=== PATIENT | female | born 1965 | race Caucasian/White ===

== ENCOUNTER 2017-04-30 12:10 | Inpatient (IN) ==
[2017-04-30 13:14] LABS: Basophils % 0.2 %; Eosinophils # 0.2 K/mcL (0.0-0.6); Eosinophils % 2.7 %; Hematocrit 32.9 % (35.3-44.9); Hemoglobin 11.9 g/dL (11.5-15.4); Immature Granulocytes % 0.2 % (0-4); Lymphocytes # 1.8 K/mcL (0.6-4.6); Lymphocytes % 32.1 %; Mean Corpuscular HGB Conc 36.2 g/dL (31.6-35.5); Mean Corpuscular Hemoglobin 31.4 pg (28.0-33.3); Mean Corpuscular Volume 86.8 fL (83.0-100.0); Mean Platelet Volume 9.9 fL (9.4-12.4); Monocytes # 0.6 K/mcL (0.0-1.3); Monocytes % 10.6 %; Platelet Count 197 K/mcL (140-400); Red Blood Count 3.79 M/mcL (3.82-4.97); Red Cell Distribution Width 12.8 % (11.5-14.5); Segmented Neutrophils % 54.2 %
[2017-04-30 13:29] LABS: Alanine Aminotransferase 24 Units/L (0-55); Albumin 3.2 g/dL (3.5-5.0); Albumin/Globulin Ratio 0.9 (1.1-2.2); Alkaline Phosphatase 176 Units/L (38-126); Aspartate Amino Transferase 21 Units/L (5-34); BUN/Creatinine Ratio 10 (6-26); Bilirubin,Total 0.2 mg/dL (0.2-1.2); Blood Urea Nitrogen 7 mg/dL (7-20); Carbon Dioxide 24 mEq/L (19-29); Chloride 90 mEq/L (98-109); Globulin 3.6 g/dL (2.4-3.5); Glucose 60 mg/dL (70-99); Osmolality,Calculated 246 (280-300); Potassium 4.6 mEq/L (3.5-4.5); Total Protein 6.8 g/dL (6.0-8.3); eGFR For African Americans > 60 (> 60); eGFR For Non-African Americans > 60 (> 60)
[2017-04-30 13:33] LABS: Sodium 120 mEq/L (136-145)
--- NOTE | 2017-04-30 13:40 | Emergency Department Note ---
Disposition Clinical Impression: Hyponatremia Disposition: Admitted As Inpatient Condition: Good Referrals: Amos Styles DO [Primary Care Provider] - Forms: ED Satisfaction Letter General Adult HPI - General Chief complaint: ED Recheck/Abnormal Lab/Rx Stated complaint: CRITICAL SODIUM Time Seen by Provider: 04/30/17 12:58 Source: patient Limitations: no limitations Nursing Notes Reviewed: Yes Vital Signs Reviewed: Yes - History of Present Illness Pain Scale: 8 - Related Data Home Medications Medication Instructions Recorded Confirmed Benztropine [Cogentin] 0.5 mg PO BID 04/13/17 04/30/17 Fluticasone Propionate Nasal 2 spray NS DAILY 04/13/17 04/30/17 [Flonase] Meloxicam [Meloxicam] 15 mg PO DAILY 04/13/17 04/30/17 OLANZapine [Zyprexa] 20 mg PO HS 04/13/17 04/30/17 OXcarbazepine [Oxcarbazepine] 600 mg PO TID 04/13/17 04/30/17 Pantoprazole Sodium 40 mg PO DAILY 04/13/17 04/30/17 Pregabalin [Lyrica] 50 mg PO TID 04/13/17 04/30/17 diazePAM [Valium] 10 mg PO TID 04/13/17 04/30/17 hydrOXYzine pamoate [HydrOXYzine 50 mg PO BID 04/13/17 04/30/17 Pamoate] Allergies Allergy/AdvReac Type Severity Reaction Status Date / Time codeine Allergy Anaphylaxis Verified 04/30/17 14:37 Penicillins Allergy Hives Verified 04/30/17 14:37 Past Medical History - Past Medical History Medical history: Reports: cancer, renal disease, other Surgical history: Reports: appendectomy, cholecystectomy Psychiatric history: Reports: anxiety, panic disorder 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: polycystic ovary syndrome, 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 - Social History Smoking Status: Current every day smoker Smokeless Tobacco Status: No Alcohol use: Reports: none Drug use: Reports: none Physical Exam - General Limitations: no limitations General appearance: alert, in no apparent distress Course Vital Signs Temperature 97.6 F 04/30/17 12:15 Pulse Rate 72 04/30/17 12:15 Respiratory Rate 18 04/30/17 12:15 Blood Pressure 134/89 04/30/17 12:15 O2 Sat by Pulse Oximetry 96 04/30/17 12:15 Temperature 97.6 F 04/30/17 12:15 Pulse Rate 70 04/30/17 14:30 Respiratory Rate 20 04/30/17 14:30 Blood Pressure 156/100 04/30/17 14:30 O2 Sat by Pulse Oximetry 99 04/30/17 14:30 Oxygen Delivery Oxygen Delivery Room Air Medical Decision Making - MDM Narrative Medical decision making narrative: I examined this patient and my medical decision-making was reviewed with the Resident Physician. I agree with the documented findings, disposition and treatment plan as described except to the extent set forth below. Patient seen and evaluated by Dr. Alfredo and myself, agrees his evaluation and management plan, supervised care the patient's stay. Patient presents today after an lab work done as an outpatient which shows low sodium. She has had a history of what sounds like CHF in the past. She is a rather poor historian. She has had an episode of chest pain also were noted to workup seeping finding etiology of this with her past medical records and reassess. She will need admission. She has had no history of seizures. 1445 hrs.: Patient's labs are back. She has not had a seizure activity. I do not she needs hypertonic saline at this time. Hydrate her with further saline spoke with nephrology that will consult on her and admit to hospitalist. Impressions hyponatremia uncertain etiology. Peripheral edema. - Lab Data Result diagrams: 04/30/17 13:07 04/30/17 13:07 Lab Results 04/30/17 04/30/17 04/30/17 Range/Units 13:07 13:07 14:14 WBC 5.6 (4.3-11.1) K/mcL RBC 3.79 L (3.82-4.97) M/mcL Hgb 11.9 (11.5-15.4) g/dL Hct 32.9 L (35.3-44.9) % MCV 86.8 (83.0-100.0) fL MCH 31.4 (28.0-33.3) pg MCHC 36.2 H (31.6-35.5) g/dL RDW 12.8 (11.5-14.5) % Plt Count 197 (140-400) K/mcL MPV 9.9 (9.4-12.4) fL Immature Gran % 0.2 (0-4) % Seg Neutrophils % 54.2 % Lymphocytes % 32.1 % Monocytes % 10.6 % Eosinophils % 2.7 % Basophils % 0.2 % Neutrophils # 3.0 (1.6-8.9) K/mcL Lymphocytes # 1.8 (0.6-4.6) K/mcL Monocytes # 0.6 (0.0-1.3) K/mcL Eosinophils # 0.2 (0.0-0.6) K/mcL Basophils # 0.0 (0.0-0.2) K/mcL Sodium 120 L* (136-145) mEq/L Potassium 4.6 H (3.5-4.5) mEq/L Chloride 90 L (98-109) mEq/L Carbon Dioxide 24 (19-29) mEq/L BUN 7 (7-20) mg/dL Creatinine 0.67 (0.57-1.11) mg/dL Est GFR ( Amer) > 60 (> 60) Est GFR (Non-Af Amer) > 60 (> 60) BUN/Creatinine Ratio 10 (6-26) Glucose 60 L (70-99) mg/dL Calculated Osmolality 246 L (280-300) Calcium 9.0 (8.6-10.8) mg/dL Total Bilirubin 0.2 (0.2-1.2) mg/dL AST 21 (5-34) Units/L ALT 24 (0-55) Units/L Alkaline Phosphatase 176 H (38-126) Units/L Serum Total Protein 6.8 (6.0-8.3) g/dL Albumin 3.2 L (3.5-5.0) g/dL Globulin 3.6 H (2.4-3.5) g/dL Albumin/Globulin Ratio 0.9 L (1.1-2.2) Urine Color (Yellow) Urine Clarity (Clear) Urine pH (5.0-8.0) pH Units Ur Specific [place] (1.010-1.025) Urine Protein (Neg-Trace) mg/dL Urine Glucose (UA) (Normal) mg/dL Urine Ketones (Negative) mg/dL Urine Blood (Negative) Urine Nitrite (Negative) Urine Bilirubin (Negative) Urine Urobilinogen (Normal) mg/dL Ur Leukocyte Esterase (Negative) Ur Culture Indicated? (NO) Urine Creatinine 47 mg/dL Urine Sodium 63.0 mEq/L 04/30/17 Range/Units 14:15 WBC (4.3-11.1) K/mcL RBC (3.82-4.97) M/mcL Hgb (11.5-15.4) g/dL Hct (35.3-44.9) % MCV (83.0-100.0) fL MCH (28.0-33.3) pg MCHC (31.6-35.5) g/dL RDW (11.5-14.5) % Plt Count (140-400) K/mcL MPV (9.4-12.4) fL Immature Gran % (0-4) % Seg Neutrophils % % Lymphocytes % % Monocytes % % Eosinophils % % Basophils % % Neutrophils # (1.6-8.9) K/mcL Lymphocytes # (0.6-4.6) K/mcL Monocytes # (0.0-1.3) K/mcL Eosinophils # (0.0-0.6) K/mcL Basophils # (0.0-0.2) K/mcL Sodium (136-145) mEq/L Potassium (3.5-4.5) mEq/L Chloride (98-109) mEq/L Carbon Dioxide (19-29) mEq/L BUN (7-20) mg/dL Creatinine (0.57-1.11) mg/dL Est GFR ( Amer) (> 60) Est GFR (Non-Af Amer) (> 60) BUN/Creatinine Ratio (6-26) Glucose (70-99) mg/dL Calculated Osmolality (280-300) Calcium (8.6-10.8) mg/dL Total Bilirubin (0.2-1.2) mg/dL AST (5-34) Units/L ALT (0-55) Units/L Alkaline Phosphatase (38-126) Units/L Serum Total Protein (6.0-8.3) g/dL Albumin (3.5-5.0) g/dL Globulin (2.4-3.5) g/dL Albumin/Globulin Ratio (1.1-2.2) Urine Color Yellow (Yellow) Urine Clarity Clear (Clear) Urine pH 7.0 (5.0-8.0) pH Units Ur Specific [place] 1.015 (1.010-1.025) Urine Protein Negative (Neg-Trace) mg/dL Urine Glucose (UA) Normal (Normal) mg/dL Urine Ketones Negative (Negative) mg/dL Urine Blood Negative (Negative) Urine Nitrite Negative (Negative) Urine Bilirubin Negative (Negative) Urine Urobilinogen Normal (Normal) mg/dL Ur Leukocyte Esterase Negative (Negative) Ur Culture Indicated? NO (NO) Urine Creatinine mg/dL Urine Sodium mEq/L
--- NOTE | 2017-04-30 14:10 | Emergency Department Note ---
Disposition Clinical Impression: Hyponatremia Disposition: Admitted As Inpatient Condition: Good Referrals: Amos Styles DO [Primary Care Provider] - Forms: ED Satisfaction Letter Recheck wound or abnormal lab - General Chief Complaint: ED Recheck/Abnormal Lab/Rx Stated Complaint: CRITICAL SODIUM Time Seen by Provider: 04/30/17 12:58 Source: patient Mode of arrival: private vehicle Limitations: no limitations Nursing Notes Reviewed: Yes Vital Signs Reviewed: Yes - History of Present Illness HPI Narrative: 51-year-old female presents to the ER with a chief complaint of abnormal labs. She was seen by her primary care provider yesterday when she had labs obtained. Reports she was called today for critically low sodium. Denies a prior history of hyponatremia in the past. She was started on Lyrica roughly 2 months ago. She reports generalized weakness for the last 4 weeks increasing in intensity. She reports that she started drinking Mountain Dew yesterday in an attempt to raise her sodium. No other complaints. Pt Subjective Complaint: abnormal lab(s) Initial Visit (ago): day(s) Symptoms Since Prior Visit: no new symptoms Context: called for abnormal lab result Associated symptoms: other (weakness) - Related Data Home Medications Medication Instructions Recorded Confirmed Benztropine [Cogentin] 0.5 mg PO BID 04/13/17 04/13/17 Fluticasone Propionate Nasal 2 spray NS DAILY 04/13/17 04/13/17 [Flonase] Meloxicam [Meloxicam] 15 mg PO DAILY 04/13/17 04/13/17 OLANZapine [Zyprexa] 20 mg PO HS 04/13/17 04/13/17 OXcarbazepine [Oxcarbazepine] 600 mg PO TID 04/13/17 04/13/17 Pantoprazole Sodium 40 mg PO DAILY 04/13/17 04/13/17 Pregabalin [Lyrica] 50 mg PO TID 04/13/17 04/13/17 diazePAM [Valium] 10 mg PO TID 04/13/17 04/13/17 hydrOXYzine pamoate [HydrOXYzine 50 mg PO BID 04/13/17 04/13/17 Pamoate] Previous Rx's Medication Instructions Recorded Doxycycline 100 mg PO BID #14 capsule 04/13/17 HYDROcodone/Acet 7.5/325 mg [[place] 1 tab PO Q4-6H PRN #20 tablet 04/13/17 7.5-325 mg] Allergies Allergy/AdvReac Type Severity Reaction Status Date / Time codeine Allergy Anaphylaxis Verified 04/30/17 14:23 Penicillins Allergy Hives Verified 04/30/17 14:23 All systems ED: reviewed and negative except as stated. Constitutional: Denies: fever Cardiovascular: Denies: chest pain Respiratory: Denies: dyspnea Gastrointestinal: Denies: abdominal pain, nausea, vomiting, diarrhea Neurological: Reports: weakness. Denies: numbness, paresthesias Past Medical History - Past Medical History Attestation: Yes The following information was validated with the patient. 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 - Social History Smoking Status: Current every day smoker Smokeless Tobacco Status: No Alcohol use: Reports: none Drug use: Reports: none Physical Exam - General Limitations: no limitations General appearance: alert, in no apparent distress - Head Head exam: atraumatic, normocephalic, normal inspection - Eye Eye exam: Present: normal appearance, EOMI - ENT ENT exam: normal exam - Neck Neck exam: Present: normal inspection, full ROM - Chest Chest inspection: Present: normal inspection, symmetric chest wall rise - Respiratory Respiratory exam: Present: normal lung sounds bilaterally - Cardiovascular Cardiovascular exam: Present: regular rate, normal rhythm, normal heart sounds - Abdominal Exam Abdominal exam: Present: soft, Non-Tender. Absent: tenderness - Extremities Exam Extremities exam: Present: normal inspection, full ROM - Expanded Upper Extremity Exam Shoulder exam: Present: normal inspection, full ROM Arm exam: Present: normal inspection, full ROM Elbow exam: Present: normal inspection, full ROM Forearm/Wrist exam: Present: normal inspection, full ROM Hand exam: Present: normal inspection, full ROM Vascular exam: Normal: radial pulse - Expanded Lower Extremity Exam Hip/Pelvis exam: Present: normal inspection, full ROM Upper leg exam: Present: normal inspection, full ROM Knee exam: Present: normal inspection, full ROM Lower leg exam: Present: normal inspection, full ROM, swelling (Lower Extremities nonpitting edema) Ankle exam: Present: normal inspection, full ROM Foot/toe exam: Present: normal inspection, full ROM Neurovascular/Tendon exam: Absent: motor deficit, sensory deficit - Neurological Exam Neurological exam: Present: alert, other (GCA 15 Nonfocal neurologic exam) - Psychiatric Psychiatric exam: Present: normal affect, normal mood - Skin Skin exam: Present: warm, dry, intact, normal color Course Course Narrative: Patient seen and examined. Nonfocal exam. Her sodium today is 120 from 116. We will consult nephrology and admitted to the hospitalist service. - Consultations Consultation #1: I discussed this patient with the on-call pigment grinder Dr. Doyle. Discussed the patient's history labs interventions today. Patient admitted to the hospitalist service with nephrology consult. Vital Signs Temperature 97.6 F 04/30/17 12:15 Pulse Rate 72 04/30/17 12:15 Respiratory Rate 18 04/30/17 12:15 Blood Pressure 134/89 04/30/17 12:15 O2 Sat by Pulse Oximetry 96 04/30/17 12:15 Temperature 97.6 F 04/30/17 12:15 Pulse Rate 72 04/30/17 12:15 Respiratory Rate 18 04/30/17 12:15 Blood Pressure 134/89 04/30/17 12:15 O2 Sat by Pulse Oximetry 96 04/30/17 12:15 Oxygen Delivery Oxygen Delivery Room Air Recheck wound or abnormal lab - MDM Narrative Medical decision making narrative: 51-year-old female presents to the ER due to abnormal labs. Was called for hyponatremia. Has had weakness over the last month. She was started on Lyrica about 2 months ago. He her sodium was 120 improved from 116. Nephrology consulted in the emergency department. Admitted to the hospitalist service. - Lab Data Lab results reviewed: Yes I reviewed the patient's lab results. Result diagrams: 04/30/17 13:07 04/30/17 13:07 Lab Results 04/30/17 04/30/17 Range/Units 13:07 13:07 WBC 5.6 (4.3-11.1) K/mcL RBC 3.79 L (3.82-4.97) M/mcL Hgb 11.9 (11.5-15.4) g/dL Hct 32.9 L (35.3-44.9) % MCV 86.8 (83.0-100.0) fL MCH 31.4 (28.0-33.3) pg MCHC 36.2 H (31.6-35.5) g/dL RDW 12.8 (11.5-14.5) % Plt Count 197 (140-400) K/mcL MPV 9.9 (9.4-12.4) fL Immature Gran % 0.2 (0-4) % Seg Neutrophils % 54.2 % Lymphocytes % 32.1 % Monocytes % 10.6 % Eosinophils % 2.7 % Basophils % 0.2 % Neutrophils # 3.0 (1.6-8.9) K/mcL Lymphocytes # 1.8 (0.6-4.6) K/mcL Monocytes # 0.6 (0.0-1.3) K/mcL Eosinophils # 0.2 (0.0-0.6) K/mcL Basophils # 0.0 (0.0-0.2) K/mcL Sodium 120 L* (136-145) mEq/L Potassium 4.6 H (3.5-4.5) mEq/L Chloride 90 L (98-109) mEq/L Carbon Dioxide 24 (19-29) mEq/L BUN 7 (7-20) mg/dL Creatinine 0.67 (0.57-1.11) mg/dL Est GFR ( Amer) > 60 (> 60) Est GFR (Non-Af Amer) > 60 (> 60) BUN/Creatinine Ratio 10 (6-26) Glucose 60 L (70-99) mg/dL Calculated Osmolality 246 L (280-300) Calcium 9.0 (8.6-10.8) mg/dL Total Bilirubin 0.2 (0.2-1.2) mg/dL AST 21 (5-34) Units/L ALT 24 (0-55) Units/L Alkaline Phosphatase 176 H (38-126) Units/L Serum Total Protein 6.8 (6.0-8.3) g/dL Albumin 3.2 L (3.5-5.0) g/dL Globulin 3.6 H (2.4-3.5) g/dL Albumin/Globulin Ratio 0.9 L (1.1-2.2) S.B.A.R. - S.B.A.R. Situation: Demographics, MOA Background: Presenting Complaint, Relevant PMH, Meds, & Allergies Assessment: Vital Signs, Course and respsone to treatment, Exam Concerns, Patient/Family Expectation, Pertinant Lab Results, Outstanding Labs Recommendation: Barrier(s) to disposition, Recommendation based on pending studies, treatments, or consults Jim Report Given to: Dr. Charlie Fernandez Repor Time: 14:25
[2017-04-30 14:26] LABS: Bilirubin,Urine Negative (Negative); Blood,Urine Negative (Negative); Clarity,Urine Clear (Clear); Color,Urine Yellow (Yellow); Glucose,Urine (UA) Normal (Normal); Ketones,Urine Negative (Negative); Leukocyte Esterase,Urine Negative (Negative); Nitrite,Urine Negative (Negative); Protein,Urine Negative (Neg-Trace); Specific Gravity,Urine 1.015 (1.010-1.025); Urobilinogen,Urine Normal (Normal)
[2017-04-30] MEDS: 0.9 % Sodium Chloride 1,000 ML IVC SCH (14:47)
--- NOTE | 2017-04-30 15:40 | Internal Med History&Physical ---
<Amos Styles - Last Filed: 04/30/17 18:07> Date of Encounter: 04/30/17 Time of Encounter: 15:40 Assessment and Plan (1) Hyponatremia Current visit: Yes Status: Acute Moderate-severe hypoosmolar hypervolemic hyponatremia Patient admitted by PCP due to concerns of severe hyponatremia. Na 120 in the ED; however, was 117 yesterday evening 04/29/17. Last labs revealed normal sodium in 10/2016. Patient does reports associated lightheadedness and fatigue worsening over the past month, no additional symptoms concerning for altered mental status. Hyponatremia likely secondary to fluid overload vs SIADH from multiple medications. Oxcarbazepine is known to cause hyponatremia, may need to discontinue and switch to another medication. Lyrica is known to cause fluid retention, may need to discontinue if cause of hyponatremia is fluid overload. Na 120, Cl 90, Potassium 4.6, Cr 0.67, albumin 3.2 TSH normal, UA normal with sg 1.015 and no protein Urine cr 47, Urine sodium 63 Echo ordered CXR ordered Urine osm and serum osm ordered Serum uric acid ordered Morning cortisol ordered Patient reports eating significant amount of salt overnight to try correct sodium on own. Patient had sodium of 117 yesterday evening and 120 this afternoon. Goal correction 4-6mEq per 24 hours, no greater than 8. Due to chronic nature of hyponatremia >10 days based on labs and lack of mental status changes, hypertonic saline is not indicated in this patient. Check sodiums q6h Strict I/O Regular diet, fluid restrict 1.5L/day IV fluids 100mLhr normal saline Nephrology consulted, appreciate additional recommendations (2) Bilateral lower extremity edema Current visit: Yes Status: Acute History of chronic intermittent lower extremity edema, now for past couple months has been chronically constant lower extremity edema reportedly to the extent that she developed fluid drainage. No ulcers appreciated to indicate fluid drainage. Edema is 2+ pitting bilateraly edema lower extremities, with some tenderness without erythema Significant 15Lb weight gain as outpatient within 1-1.5 months. Bilateral lower extremity edema may be secondary to medication (Lyrica) vs due to chronic lymphedema vs undiagnosed heart failure. Echo ordered Will continue monitor via physical exam Strict I/O Avoid diuretics at this time. (3) Dyspnea on exertion Current visit: Yes Status: Acute Dyspnea on exertion worsening over past month; however, patient also increased smoking to 1.5 ppd. Echo ordered CXR ordered (4) Second degree burn of fingers Current visit: Yes Status: Acute Bilateral second degree hand anderson, currently healing. -Silvadene topical Qualifiers: Encounter type: initial encounter Laterality: unspecified laterality Qualified Code(s): T23.229A - Burn of second degree of unspecified single finger (nail) except thumb, initial encounter (5) Severe anxiety Current visit: Yes Status: Chronic Severe anxiety with labile mood. -Continue home medications for chronic disease management. Trileptal, Valium, Benztropine, and Olanzapine. May need psych consult if recommended to change psych meds. (6) Neuropathy Current visit: Yes Status: Chronic Bilateral lower extremity neuropathy. Continue home Lyrica, may need to discontinue if no addiitonal cause of lower extrmeity edema. (7) HTN (hypertension) Current visit: Yes Status: Chronic Known history of hypertension, no on medication. Bp controlled at 124/83. Continue monitoring vitals Qualifiers: Hypertension type: essential hypertension Qualified Code(s): I10 - Essential (primary) hypertension (8) HLD (hyperlipidemia) Current visit: Yes Status: Chronic No home medications. Qualifiers: Hyperlipidemia type: unspecified Qualified Code(s): E78.5 - Hyperlipidemia , unspecified (9) Tobacco abuse Current visit: Yes Status: Acute Nicotine patches ordered (10) History of cervical cancer Current visit: Yes Status: Acute (11) DVT prophylaxis Current visit: Yes Status: Acute lovenox for dvt ppx Internal Medicine - H&P: HPI Chief complaint: low sodium, leg swelling Admitted From: Emergency Dept History of present illness: Ms. Grimaldo is a 51 year old female Ms. Tracy Grimaldo is a 51 year old female with history of hypertension, hyperlipidemia, chronic intermittent lower extreity edema, severe anxiety, neuropathy, dystonia, seasonal allergies, and history of cervical cancer who presents to the ED today with complaints of low sodium and leg swelling. Patient was determined to have sodium of 125 on labs drawn on 04/19/17, sodium 117 yesterday evening, and sodium of 120 this morning in the ED. Patient reports associated lightheadedness, increased tiredness/fatigue, shortness of breath with exertion worsening over the past month of two. Since being seen in the clinic by myself yesterday, the patient reports she has eaten a lot of salt in attempts to correct her own sodium. Patient also reports chronic intermittent lower extremity edema for years for which she was previously prescribed lasix. Patient was recenty started on Lyrica in december 2016, which resulted in significant improvement in her neuropathic feet pain, but was noted to have continued complaints of bilateral lower extremity edema which then became chronic and constant. Patient was seen multiple times in the clinic for this swelling and we consistently recommended trial off of Lyrica as this is a known side effect of the medication. The patient did not complete labs on multiple visits until 04/19/17 which revealed the sodium of 125. Patient denies previous problems with sodium, with liver or with kidneys. Patient's last labs completed in 10/2016 were normal. Patient was noted on last office visit 04/29/17 to have gained 15 Lbs since visit in mid February 2017. Patient also reports anderson to hands bilaterally, from about 2 weeks ago. Currently painful and she manually removed the blisters. Patient reports some difficulty bending her fingers. Patient denies fevers, chills, sweats, nausea, vomiting, chest pain, abdominal pain, changes in bowels or bladder, weakness, or loss of sensation. Past Med Surg Social Fam HX - Past Medical History Medical history: cancer (cervical), COPD, hyperlipidemia, hypertension, other ( lower extremity edema, neuropathy, dystonia, seasonal allergies) Psychiatric history: anxiety, panic disorder - Past Surgical History Surgical History: appendectomy, cholecystectomy - Social History Smoking Status: Current every day smoker Packs per day: 1.5 Smokeless Tobacco Status: No Alcohol use: none Drug use: none, other (previous narcotic abuser, no IV drug use) Occupational status: unemployed Current living situation: Home - Independent Activity Level: Independent ambulation Recent Out of Country Travel Within the Last 8 Weeks: No Exposure or Possible Exposure to Illness During Travel: No - Family History Mother Race: Hx Family Cancer: Yes (multiple myeloma, unspecified) Father Hx Family Cancer: Yes (skin cancer) Daughter Hx Family Cardiac Disorders: Yes (htn) Hx Family Endocrine Disorder: Yes (diabetes) Internal Medicine - H&P: Meds Benztropine [Cogentin] 0.5 mg PO BID 04/13/17 [History] Fluticasone Propionate Nasal [Flonase] 2 spray NS DAILY 04/13/17 [History] Meloxicam [Meloxicam] 15 mg PO DAILY 04/13/17 [History] OLANZapine [Zyprexa] 20 mg PO HS 04/13/17 [History] OXcarbazepine [Oxcarbazepine] 600 mg PO TID 04/13/17 [History] Pantoprazole Sodium 40 mg PO DAILY 04/13/17 [History] Pregabalin [Lyrica] 50 mg PO TID 04/13/17 [History] diazePAM [Valium] 10 mg PO TID 04/13/17 [History] hydrOXYzine pamoate [HydrOXYzine Pamoate] 50 mg PO BID 04/13/17 [History] 3 Allergy/AdvReac Type Severity Reaction Status Date / Time codeine Allergy Anaphylaxis Verified 04/30/17 14:37 Penicillins Allergy Hives Verified 04/30/17 14:37 All Systems PM: A 10-system review of systems was performed and is negative for pertinent findings except as documented above in the HPI. - Constitutional Constitutional: as per HPI, fatigue, weight gain, no chills, no fever(s), no weakness - EENT Eyes: as per HPI, no blurry vision, no change in vision Ears: as per HPI Nose, mouth and throat: as per HPI, dysphagia, no dry mouth, no neck pain, no odynophagia, no sore throat - Cardiovascular Cardiovascular ROS IM: as per HPI, dyspnea, dyspnea on exertion, edema, lightheadedness, no chest pain, no diaphoresis, no palpitations, no syncope - Respiratory Respiratory: as per HPI, cough, dyspnea, dyspnea on exertion, no hemoptysis, no wheezing, no chest congestion, no excessive phlegm production - Gastrointestinal Gastrointestinal: as per HPI, dysphagia, no abdominal pain, no change in bowel habits, no constipation, no diarrhea, no hematochezia, no melena, no nausea, no vomiting - Genitourinary Genitourinary: as per HPI, no dysuria, no hematuria, no nocturia - Musculoskeletal Musculoskeletal ROS IM: as per HPI, joint swelling, muscle cramps, myalgias, no neck pain, no numbness, no stiffness, no tingling - Integumentary Integumentary IM: as per HPI, no erythema, no new lesions, no non-healing lesions, no pruritus, no rash, no unusual bruising - Neurological Neurological ROS: as per HPI, burning sensations, restless legs, no abnormal gait, no confusion, no dizziness, no headache(s), no numbness, no tingling, no weakness - Psychiatric Psychiatric: as per HPI, anxiety, mood swings, no auditory hallucinations, no hallucinations, no suicidal ideation, no visual hallucinations - Endocrine Endocrine IM: as per HPI, fatigue - Hematologic/Lymphatic Hematologic/Lymphatic: as per HPI, no easy bleeding, no easy bruising - Allergic/Immunologic Allergic/Immunologic: as per HPI, seasonal rhinorrhea, no itchy eyes - Constitutional Vitals: Temp Pulse Resp BP Pulse Ox 97.6 F 70 20 156/100 99 04/30/17 12:15 04/30/17 14:30 04/30/17 14:30 04/30/17 14:30 04/30/17 14:30 General appearance: Present: cooperative, A&O X 3, pleasant, no acute distress, answers questions appropriately Exam: mood lability, will go from normal to biting lips and frustrated to crying. - Head Head exam: Present: atraumatic, normal inspection, normocephalic - Eye Eye exam: Present: EOMI, normal appearance, PERRL. Absent: scleral icterus - ENT ENT exam: Present: mucous membranes moist, normal exam, normal external ear exam , normal oropharynx - Neck Neck exam general surgery: Present: full ROM, normal inspection, supple, trachea midline. Absent: tenderness - Respiratory Respiratory exam: Present: wheezes. Absent: decreased breath sounds, rales, respiratory distress, rhonchi, tachypnea - Cardiovascular Cardiovascular exam: Present: RRR, +S1, +S2. Absent: diastolic murmur, JVD, systolic murmur - GI/Abdominal GI/Abdominal exam: Present: normal bowel sounds, soft. Absent: distended, guarding, tenderness - Extremities Exam Extremities exam: Present: full ROM, normal capillary refill, pedal edema (2+ pitting edema bilaterally R > L), tenderness, warm, radial pulses palpable and symmetrical Additional comments: anterior lower leg bone tenderness with palpation on left - Back Exam Back exam: Present: full ROM, normal inspection. Absent: rash noted, tenderness - Neurological Exam Neurological exam: Present: alert, CN II-XII intact, normal gait, oriented X3, no focal deficits, strengths equal and symetr throughout. Absent: motor sensory deficit, facial droop, speech deficit - Psychiatric Psychiatric exam: Present: anxious Additional comments: labile mood as noted above - Skin Skin exam: Present: dry, intact, normal color, warm. Absent: rash Additional comments: Anderson and scarring note to left crease between thumb and pointer on Left with dark eschar borders and dept to dermis apprx 3cm x 1 cm x 3mm. Second medial mcp joint on L with darkening scar and mild contracture of digit. Third lateral mcp on L with healing superficial blister without bulla and central erythema aabout 2 cm x 1 cm x 1mm. RIght thumb superficial erythema and skin sloughing. Internal Med - H&P Results - Labs CBC & Chem 7: 04/30/17 13:07 04/30/17 13:07 <Lopez Bob T - Last Filed: 04/30/17 21:16> Date of Encounter: 04/30/17 Internal Medicine - H&P: HPI History of present illness: Ms. Grimaldo is a 51 year old female All Systems PM: A 10-system review of systems was performed and is negative for pertinent findings except as documented above in the HPI. - Constitutional Vitals: Temp Pulse Resp BP Pulse Ox 97.5 F L 72 18 141/92 99 04/30/17 18:43 04/30/17 19:45 04/30/17 18:43 04/30/17 18:43 04/30/17 18:43 Internal Med - H&P Results - Labs CBC & Chem 7: 04/30/17 13:07 04/30/17 18:58 Labs: BMP 04/30/17 18:58 Sodium 119 L* - Impressions ITS Impressions Chest X-Ray 04/30/17 16:05 IMPRESSION: No acute cardiopulmonary disease. D/ / Hussein Ford MD / Hussein Ford MD Interpreting Provider: Hussein Ford MD - Attending Attestation 51 year old female with history of hypertension, hyperlipidemia, COPD,chronic intermittent lower extreity edema, severe anxiety, neuropathy, dystonia, and history of cervical cancer , tobacco abuse She is recalled by PCP for NA of 117. She endorsed history of REYNOLDS, Leg edema, increased somnolence, lethargy for about a month. She denies cough, headaches, changes in mental status. She is extremely labile at bedside swinging between extremes of emotion She has a personal hx of CA, she is not up to date with her annual MM. Physical exam: Anxious, emotional, labile, not in distress, speaks full sentences. Chest is CTAB. HEENT: Moist mucosa. HS S1, S2, bradycardia. Abdomen is soft and not tender. Extremities with 1+ piting edema up to mid-d[place] Labs and Imaging reviewed: Na 120, Hypoosolarity-Serum and Urine, Urine Na>86 9/ 7, today ~60s. LFT WNL, slightly elevated ALP. TSH WNL A/P; Symptomatic moderate-Severe hyponatremia. possibly secondary to hypervolemia. Agree with Saline. Obtain CXR, EKG, ECHO. Consult renal. Send uric acid. Topical cream for anderson on hands, NRT. Consult nephrology Rest of details as in resident physician's documentation
[2017-04-30 15:52] LABS: Thyroid Stimulating Hormone 1.568 mcIU/mL (0.350-4.840)
[2017-04-30] MEDS ORDERED: Naloxone 0.4 MG/ML INJ IVP PRN (16:41)
[2017-04-30] MEDS ORDERED: Acetaminophen 325 MG TABLET PO PRN (16:41)
[2017-04-30 18:04] LABS: Prothrombin Time 10.8 Seconds (9.4-12.1)
[2017-04-30 18:07] LABS: Activated Partial Thrombo Time 33.5 Seconds (26.0-36.0)
[2017-04-30] MEDS: OXcarbazepine 150 MG TABLET PO SCH (21:51)
[2017-04-30] MEDS: diazePAM 10 MG TABLET PO SCH (21:51)
[2017-04-30] MEDS: Pregabalin 50 MG CAPSULE PO SCH (21:51)
[2017-04-30] MEDS: OLANZapine 10 MG TAB.RAPDIS PO SCH (21:51)
[2017-04-30] MEDS: Nicotine 21 MG PATCH.TD24 TD SCH (21:52)
[2017-04-30] MEDS: Silver Sulfadiazine 50 GM TUBE TP SCH (21:53)
[2017-05-01] MEDS: 0.9 % Sodium Chloride 1,000 ML IVC SCH (04:04)
[2017-05-01] MEDS: *HR* Enoxaparin 40 MG/0.4 ML SYRINGE SQ SCH (06:03)
[2017-05-01] MEDS: Fluticasone Propionate Nasal 50 MCG/SPRAY BOTTLE NS SCH (07:26)
[2017-05-01] MEDS: Nicotine 21 MG PATCH.TD24 TD SCH (07:27)
[2017-05-01] MEDS: diazePAM 10 MG TABLET PO SCH ×3 (07:28→20:12)
[2017-05-01] MEDS: Pregabalin 50 MG CAPSULE PO SCH ×3 (07:28→20:12)
[2017-05-01] MEDS: OXcarbazepine 150 MG TABLET PO SCH (07:28)
[2017-05-01] MEDS: Silver Sulfadiazine 50 GM TUBE TP SCH ×2 (07:28→20:14)
--- NOTE | 2017-05-01 08:54 | Internal Med Progress Note ---
<Amos Styles - Last Filed: 05/01/17 13:07> Date of Encounter: 05/01/17 Time of Encounter: 08:54 - Assessment and plan (1) Hyponatremia Current Visit: Yes Status: Acute Assessment and plan: Hypoosmolar hypervolemic hyponatremia upon admission. Na on admission was 120, 117 on labs the evening prior. This morning Na at 127 and 129, only interventions were 100mL/hr normal saline and fluid restriction overnight. Patient otherwise asymptomatic. Hyponatremia likely secondary to fluid overload vs SIADH from multiple inciting medications particularly oxcarbazepine. Urine osm low at 252, Urine Cr 47, Urine sodium 63 Na 129, Cl 98, Cr 0.68, Uric Acid 2.3 L Random morning cortisol 14.2 Normal. CXR revealed no acute cardiopulm process. Echo revealed normal LV systolic function, ef 60-65%, mild left ventricular diastolic dysfunction, no valvular dysfunction, no evidence of pulm htn. Continue monitoring sodiums q6h Strict I/O Regular diet with fluid restriction 1.5L/day IV fluids discontinued due too overcorrection. Goal correction is 4-6mEq per 24 hours, no greater than 8. If sodium continues to trend upwards or changes in mental status, may consider 1/2 normal saline to back correct. Nephrology on board. (2) Bilateral lower extremity edema Current Visit: Yes Status: Acute Assessment and plan: History of chronic intermittent lower extremity edema, presented with chronic constant lower extremity edema. This morning, patient does not have lower extremity edema. Lower extremity edema may have been more likely due to hyponatremia, but may also be medications that contribute to. Echo revealed mild LV diastolic dysfunction with EF 60-65%. Continue per plan in assessment above Avoid diuretics at this time. (3) Dyspnea on exertion Current Visit: Yes Status: Acute Assessment and plan: CXR revealed no acute cardio pulm process, Echo revealed mild lv diastolic dysfunction. Patient denies shortness of breath, has been satting 98% on room air. May have been more associated to tobacco abuse rather than other clinical etiology. Continue monitor vitals. (4) Second degree burn of fingers Current Visit: Yes Status: Acute Assessment and plan: bilateral second degree hand anderson,, currently healing Continue silvadene topical Qualifiers: Encounter type: initial encounter Laterality: unspecified laterality Qualified Code(s): T23.229A - Burn of second degree of unspecified single finger (nail) except thumb, initial encounter (5) Severe anxiety Current Visit: Yes Status: Chronic Assessment and plan: Severe anxiety with labil mood. Continue home medications including Trileptal, valium, benztropine, and olanzapine. Psych consulted for recommendation on other medication than Trileptal due to the most likely cause of hyponatremia. Discussed over the phone with Psychiatry, Trileptal is not indicated for anxiety and as we know right now and according to patient she has no known history of seizure disorder. Psych recommends stopping Trileptal and starting Vistaril 25mg tid and to follow up as outpatient with provider/psychiatry that is filling that medication. (6) Neuropathy Current Visit: Yes Status: Chronic Assessment and plan: Bilateral lower extremity neuropathy. Continue home Lyrica, may need to discontinue if no addiitonal cause of lower extrmeity edema. (7) HTN (hypertension) Current Visit: Yes Status: Chronic Assessment and plan: Known history of hypertension, no on medication. Bp controlled at 140/85 Continue monitoring vitals -May consider adding medication tomorrow if still elevated above goal. Qualifiers: Hypertension type: essential hypertension Qualified Code(s): I10 - Essential (primary) hypertension (8) Tobacco abuse Current Visit: Yes Status: Acute Assessment and plan: Nicotine patches. This morning patient smelled of smoke, patient reluctantly admits to leaving floor to smoke. Counseled and advised patient not appropriate while in the hospital. (9) History of cervical cancer Current Visit: Yes Status: Acute (10) DVT prophylaxis Current Visit: Yes Status: Acute Assessment and plan: Lovenox for dvt ppx - Subjective Interval history: Patient reports doing well overnight, no lightheadedness or dizziness or confusion. Upon further questioning patient reports drinking about 800mL tea in the mornings, and 6 cans of mountain dew throughout the day, no excessive fluid intake. Patient also reports she doesn't typically eat breakfast or lunch , eats a normal-large size dinner. Reports increased urination overnight. Patient denies fevers, chills, sweats, nausea, vomiting, dysphagia, changes in appetites, chest pain, shorntess of breath, abdominal pain, changes in bowels, dysuria, weakness, or loss of sensation. Patient's sodium has corrected very rapidly overnight with fluid restriction and normal saline 100mL/hr. Na 127 this morning from 120 yesterday evening. Nephrology was in patient's room this morning upon me leaving. - Constitutional Vitals: Temp Pulse Resp BP Pulse Ox 97.8 F 73 16 141/96 98 05/01/17 07:47 05/01/17 07:47 05/01/17 07:47 05/01/17 07:47 05/01/17 07:47 General appearance: Present: cooperative, A&O X 3, pleasant, no acute distress, answers questions appropriately Exam: labile mood as noted previously - Head Head exam: Present: atraumatic, normal inspection, normocephalic Additional comments: 1.5cm scar left maxillary region, stitches cleanly removed. - Eye Eye exam: Present: EOMI, normal appearance - ENT ENT exam: Present: mucous membranes moist, normal exam, normal oropharynx - Neck Neck exam general surgery: Present: full ROM, normal inspection, supple, trachea midline. Absent: tenderness - Respiratory Respiratory exam: Present: wheezes. Absent: decreased breath sounds, rales, respiratory distress, rhonchi, tachypnea - Cardiovascular Cardiovascular exam: Present: RRR, +S1, +S2. Absent: diastolic murmur, JVD, systolic murmur - GI/Abdominal GI/Abdominal exam: Present: normal bowel sounds, soft. Absent: distended, guarding, tenderness - Extremities Exam Extremities exam: Present: full ROM, normal inspection, warm, radial pulses palpable and symmetrical. Absent: pedal edema (no edema noted today), tenderness - Neurological Exam Neurological exam: Present: alert, CN II-XII intact, normal gait, oriented X3, no focal deficits, strengths equal and symetr throughout. Absent: facial droop , speech deficit - Psychiatric Psychiatric exam: Present: anxious Additional comments: labile mood - Skin Skin exam: Present: dry, intact, normal color, warm. Absent: rash Additional comments: healing skin sores as noted previously from second degree anderson to hands. Internal Medicine: Result - Labs CBC & Chem 7: 04/30/17 13:07 05/01/17 08:51 Labs: BMP 04/30/17 05/01/17 18:58 01:53 Sodium 119 L* 127 L D - ABG Interpretation ABG results: PT/INR, D-dimer PT 10.8 Seconds (9.4-12.1) 04/30/17 17:42 - Impressions Impressions Chest X-Ray 04/30/17 16:05 IMPRESSION: No acute cardiopulmonary disease. D/ / Hussein Ford MD / Hussein Ford MD Interpreting Provider: Hussein Ford MD Consult Discharge Plan - Plan Referrals: Amos Styles DO [Primary Care Provider] - <DanielpeteLopez T - Last Filed: 05/01/17 14:11> Date of Encounter: 05/01/17 - Constitutional Vitals: Temp Pulse Resp BP Pulse Ox 97.9 F 68 20 140/85 98 05/01/17 11:17 05/01/17 11:20 05/01/17 11:17 05/01/17 11:17 05/01/17 11:17 Internal Medicine: Result - Labs CBC & Chem 7: 04/30/17 13:07 05/01/17 13:09 Labs: BMP 04/30/17 05/01/17 05/01/17 18:58 01:53 08:51 Sodium 119 L* 127 L D 129 L Potassium 4.1 Chloride 98 Carbon Dioxide 23 BUN 6 L Creatinine 0.68 Glucose 99 Calcium 9.4 05/01/17 13:09 Sodium 130 L Potassium Chloride Carbon Dioxide BUN Creatinine Glucose Calcium - ABG Interpretation ABG results: PT/INR, D-dimer PT 10.8 Seconds (9.4-12.1) 04/30/17 17:42 - Impressions Impressions Chest X-Ray 04/30/17 16:05 IMPRESSION: No acute cardiopulmonary disease. D/ / Hussein Ford MD / Hussein Ford MD Interpreting Provider: Hussein Ford MD - Attending Attestation I have independently seen and examined this patient and discussed plan of care with the patient and the resident 51 year old female with history of hypertension, hyperlipidemia, COPD,chronic intermittent lower extreity edema, severe anxiety, neuropathy, dystonia, and history of cervical cancer , tobacco abuse She is admitted and being managed for hyponatremia This morning, she states she actually feels stronger She has chronic bronchitis from COPD, she is otherwise stable Physical exam: VSS, speaks full sentences. Chest is CTAB. HEENT: Moist mucosa. HS S1, S2, bradycardia. Abdomen is soft and not tender. Extremities with 1+ pitting edema up to mid-[place] Labs and Imaging reviewed: Hypo-osmolar hyponatremia-overcorrected by 9meq in 24 hrs. CXR unremarkable. ECHO with mild LVDD A/P; Symptomatic moderate-Severe hyponatremia. Possibly secodnary to SIADH from psych medications, Cannot rule our fluid overload from pedal edema. Nephrology input noted. D/C saline May need to start d5W if next chem shows na continues to rise Continue q6h Na monitoring Psych eval for medication correction/changes Tobacco cessation counselling done Rest of details as in resident physician's documentation
--- NOTE | 2017-05-01 09:15 | Nephrology Consult Note ---
Date of Encounter: 05/01/17 Time of Encounter: 08:30 Assessment and Plan (1) Hyponatremia Current Visit: Yes Status: Acute Hyponatremia; SIADH like syndrome R/T medication. No urine osum available to determine free water, dilute/concentrated urine, therefore knowledge deficit to continue IV fluids. If IV fluids continued, close monitoring of Sodium. Recommend stopping/alternate medication to oxcarbazepine. Fluid restriction 1500cc daily. History of Present Illness - Reason for Consult hyponatremia - History of Present Illness Ms. Cuadra is a 51 year old female who presented to ER after told to come by PCP for low sodium. She also complained of LE swelling. Other PMH- HTN, hyperlipidemia, severe anxiety, neuropathy, dystonia, and cervical cancer. Sodium 125 on 04/19/17, 117 on 03/29/17 and 120 on presentation to ER. She states she had been consuming large amounts of salt along with consumption of large amounts Mt. Dew and Gatorade to self correct. Recently started on Lyrica for neuropathy thought to be related to her antianxiety medication. Ms. Grimaldo denies prior history of hyponatremia or renal disease. She admits to large fluid consumption daily, several 20 ounce cups of tea and at least six Mt. Dews daily. She states she only eats one meal daily but of normal amounts. She denies any nausea, vomiting or diarrhea. She did admit some fatigue and lightheadedness. She is currently taking Oxcarbazepine. 0.9 NS at 100cc/hr was started. Sodium today 127. Fluid restriction 1500 cc daily. Renal fct normal, TSH 1.56, urine osum, random cortisol, uric acid pending. Past Med Surg Social Fam HX - Past Medical History Medical history: cancer (cervical), COPD, hyperlipidemia, hypertension, other ( lower extremity edema, neuropathy, dystonia, seasonal allergies) Psychiatric history: anxiety, panic disorder - Past Surgical History Surgical History: appendectomy, cholecystectomy - Social History Smoking Status: Current every day smoker Packs per day: 1.5 Smokeless Tobacco Status: No Alcohol use: none Drug use: none, other (previous narcotic abuser, no IV drug use) - Family History Mother Race: Hx Family Cancer: Yes (multiple myeloma, unspecified) Father Hx Family Cancer: Yes (skin cancer) Daughter Hx Family Cardiac Disorders: Yes (htn) Hx Family Endocrine Disorder: Yes (diabetes) Medications and Allergies Benztropine [Cogentin] 0.5 mg PO BID 04/13/17 [History] Fluticasone Propionate Nasal [Flonase] 2 spray NS DAILY 04/13/17 [History] Meloxicam [Meloxicam] 15 mg PO DAILY 04/13/17 [History] OLANZapine [Zyprexa] 20 mg PO HS 04/13/17 [History] OXcarbazepine [Oxcarbazepine] 600 mg PO TID 04/13/17 [History] Pantoprazole Sodium 40 mg PO DAILY 04/13/17 [History] Pregabalin [Lyrica] 50 mg PO TID 04/13/17 [History] diazePAM [Valium] 10 mg PO TID 04/13/17 [History] hydrOXYzine pamoate [HydrOXYzine Pamoate] 50 mg PO BID 04/13/17 [History] 3 Allergy/AdvReac Type Severity Reaction Status Date / Time codeine Allergy Anaphylaxis Verified 04/30/17 14:37 Penicillins Allergy Hives Verified 04/30/17 14:37 Review of Systems All Systems: reviewed and no additional remarkable complaints except as stated Exam - Vital Signs Vital signs: Initial Vital Signs Temp Pulse Resp BP Pulse Ox 97.6 F 72 18 134/89 96 04/30/17 12:15 04/30/17 12:15 04/30/17 12:15 04/30/17 12:15 04/30/17 12:15 Vital Signs - Last 8 Hours Temp Pulse Resp BP Pulse Ox 05/01/17 07:47 97.8 F 73 16 141/96 98 05/01/17 07:37 68 05/01/17 03:19 97.0 F L 64 16 121/84 98 05/01/17 03:15 70 Intake and Output 04/30/17 05/01/17 05/01/17 23:59 07:59 15:59 Intake Total 360 / 360 1000 / 1000 Output Total 300 / 300 2300 / 2300 Balance 60 / 60 -1300 / -1300 Intake: IV Fluids 1000 / 1000 0.9 % Sodium Chloride 1, 1000 / 1000 000 ML @ 100 mls/hr IVC . Q10H [place] Rx#:[id number] Oral 360 / 360 Output: Urine 300 / 300 2300 / 2300 Other: # Voids 1 Weight 85.6 kg 84.6 kg Patient Weight 05/01/17 23:59 Weight 84.6 kg - General Appearance General appearance: well-developed, well-nourished, appears started age EENT: mucous membranes moist Neck: no JVD Respiratory: rhonchi Additional Comments: moist productive cough Cardiology: no murmurs, edema, regular rate, regular rhythm Additional Comments: trace pitting LE Gastrointestinal: normoactive bowel sounds, no tenderness Integumentary: warm and dry Neurologic: alert and oriented x3 Psychiatric: mood/affect appropriate, cooperative Results - Lab Results 04/30/17 13:07 05/01/17 01:53 Most recent lab results Calcium 9.0 mg/dL (8.6-10.8) 04/30/17 13:07 Magnesium 1.8 mg/dL (1.6-2.6) 04/30/17 17:42 Urine Creatinine 47 mg/dL 04/30/17 14:14 Urine Sodium 63.0 mEq/L 04/30/17 14:14 Consult Discharge Plan - Plan Referrals: Amos Styles DO [Primary Care Provider] -
[2017-05-01 09:18] LABS: BUN/Creatinine Ratio 9 (6-26); Blood Urea Nitrogen 6 mg/dL (7-20); Calcium 9.4 mg/dL (8.6-10.8); Carbon Dioxide 23 mEq/L (19-29); Chloride 98 mEq/L (98-109); Glucose 99 mg/dL (70-99); Osmolality,Calculated 266 (280-300); Potassium 4.1 mEq/L (3.5-4.5); Sodium 129 mEq/L (136-145); Uric Acid 2.3 mg/dL (2.6-6.0); eGFR For African Americans > 60 (> 60); eGFR For Non-African Americans > 60 (> 60)
[2017-05-01] MEDS: Benzonatate 100 MG CAPSULE PO PRN ×2 (14:42→22:59)
[2017-05-01] MEDS: OLANZapine 10 MG TAB.RAPDIS PO SCH (20:11)
[2017-05-02 04:45] LABS: Basophils % 0.2 %; Eosinophils # 0.1 K/mcL (0.0-0.6); Eosinophils % 2.3 %; Hematocrit 33.7 % (35.3-44.9); Hemoglobin 11.9 g/dL (11.5-15.4); Immature Granulocytes % 0.2 % (0-4); Lymphocytes # 1.9 K/mcL (0.6-4.6); Lymphocytes % 34.3 %; Mean Corpuscular HGB Conc 35.3 g/dL (31.6-35.5); Mean Corpuscular Hemoglobin 30.7 pg (28.0-33.3); Mean Corpuscular Volume 87.1 fL (83.0-100.0); Mean Platelet Volume 9.8 fL (9.4-12.4); Monocytes # 0.5 K/mcL (0.0-1.3); Monocytes % 8.5 %; Platelet Count 223 K/mcL (140-400); Red Blood Count 3.87 M/mcL (3.82-4.97); Segmented Neutrophils % 54.5 %
[2017-05-02 05:00] LABS: BUN/Creatinine Ratio 13 (6-26); Blood Urea Nitrogen 10 mg/dL (7-20); Calcium 9.6 mg/dL (8.6-10.8); Carbon Dioxide 24 mEq/L (19-29); Chloride 102 mEq/L (98-109); Glucose 88 mg/dL (70-99); Osmolality,Calculated 278 (280-300); Potassium 4.1 mEq/L (3.5-4.5); Sodium 135 mEq/L (136-145); eGFR For African Americans > 60 (> 60); eGFR For Non-African Americans > 60 (> 60)
[2017-05-02] MEDS: *HR* Enoxaparin 40 MG/0.4 ML SYRINGE SQ SCH (05:18)
[2017-05-02] MEDS: Nicotine 21 MG PATCH.TD24 TD SCH (07:18)
[2017-05-02] MEDS: diazePAM 10 MG TABLET PO SCH ×3 (07:18→19:51)
[2017-05-02] MEDS: Fluticasone Propionate Nasal 50 MCG/SPRAY BOTTLE NS SCH (07:18)
[2017-05-02] MEDS: Pregabalin 50 MG CAPSULE PO SCH ×3 (07:18→19:52)
[2017-05-02] MEDS: Silver Sulfadiazine 50 GM TUBE TP SCH ×2 (07:19→19:53)
--- NOTE | 2017-05-02 07:50 | Internal Med Progress Note ---
<Amos Styles - Last Filed: 05/02/17 11:52> Date of Encounter: 05/02/17 Time of Encounter: 07:50 - Assessment and plan (1) Hyponatremia Current Visit: Yes Status: Acute Assessment and plan: Hypoosmolar hypervolemic hyponatremia upon admission. Na on admission was 120, 117 on labs the evening prior. Overnight Na 130 130 130 134 135 136, had discontinued normal saline yesterday afternoon, was on no IV fluids, then continued to rise to 130 so night team added 1/2 normal saline which stabilized Na to 130 until this morning when it continued to rise upwards. D5W was ordered this morning with Na 135. Patient otherwise asymptomic, normal range of motion of extremities, normal mental status. Hyponatremia likely secondary to SIADH from Trileptal and fluid overload from severe hyponatremia. Urine osm low at 252, Urine Cr 47, Urine sodium 63 Uric Acid 2.3 L, Random morning cortisol 14.2 Normal. Na 135, Cl 102, Cr 0.76, CXR revealed no acute cardiopulm process. Echo revealed normal LV systolic function, ef 60-65%, mild left ventricular diastolic dysfunction, no valvular dysfunction, no evidence of pulm htn. Continue monitoring sodiums q6h Strict I/O Regular diet with fluid restriction 1.5L/day D5W started this morning due to overcorrection. Will discontinue later this afternoon and allow patient to recorrect on own per Nephro recommendations. Nephrology on board. Goal correction Na 4-6 every 24 hours, no greater than 8. Patient has corrected from 120 to 136 since admission <48 hours ago. Will continue to monitor closely, fortunately no signs of weakness, paralysis, or mental status changes. (2) Bilateral lower extremity edema Current Visit: Yes Status: Acute Assessment and plan: History of chronic intermittent lower extremity edema, presented with chronic constant lower extremity edema. This morning, patient does not have lower extremity edema. Lower extremity edema may have been more likely due to hyponatremia, but may also be medications that contribute to. Echo revealed mild LV diastolic dysfunction with EF 60-65%. Continue per plan in assessment above Avoid diuretics at this time. (3) Dyspnea on exertion Current Visit: Yes Status: Acute Assessment and plan: CXR revealed no acute cardio pulm process, Echo revealed mild lv diastolic dysfunction. Patient denies shortness of breath, has been satting 98% on room air. May have been more associated to tobacco abuse rather than other clinical etiology. Continue monitor vitals. (4) Second degree burn of fingers Current Visit: Yes Status: Acute Assessment and plan: bilateral second degree hand anderson,, currently healing Continue silvadene topical Qualifiers: Encounter type: initial encounter Laterality: unspecified laterality Qualified Code(s): T23.229A - Burn of second degree of unspecified single finger (nail) except thumb, initial encounter (5) Severe anxiety Current Visit: Yes Status: Chronic Assessment and plan: Severe anxiety with labile mood. Continue home medications including Trileptal, valium, benztropine, and olanzapine. Psych consulted for recommendation on other medication than Trileptal due to the most likely cause of hyponatremia. Discussed over the phone with Psychiatry, Trileptal is not indicated for anxiety and as we know right now and according to patient she has no known history of seizure disorder. Psych recommends stopping Trileptal and starting Vistaril 25mg tid and to follow up as outpatient with provider/psychiatry that is filling that medication. Follow up with Psych upon discharge. (6) Neuropathy Current Visit: Yes Status: Chronic Assessment and plan: Bilateral lower extremity neuropathy. Continue home Lyrica (7) HTN (hypertension) Current Visit: Yes Status: Chronic Assessment and plan: Known history of hypertension, no on medication. Bp controlled at 129/89 Continue monitoring vitals Qualifiers: Hypertension type: essential hypertension Qualified Code(s): I10 - Essential (primary) hypertension (8) Tobacco abuse Current Visit: Yes Status: Acute Assessment and plan: Nicotine patches. (9) History of cervical cancer Current Visit: Yes Status: Acute (10) DVT prophylaxis Current Visit: Yes Status: Acute Assessment and plan: Lovenox for dvt ppx - Subjective Interval history: Patient reports doing well overnight other than the need for another IV. She denies lightheadedness, dizziness, headache, or confusion this morning. She actually appear more alert and with more energy than her previous baseline in my outpatient office. Patient denies fevers, chills, sweats, nausea, vomiting, dysphagia, changes in appetite, chest pain, shortness of breath, abdominal pain , changes in bowels or bladder, weakness, or loss of sensation. Patient's sodium has corrected very rapidly again overnight. Patient's IV fluids were stopped, with Sodium trending up to 130, stayed stable, but then started 1/2 normal saline overnight and this morning elevated to 134 and 135. 1/ 2 normal saline was discontinued this morning. - Constitutional Vitals: Temp Pulse Resp BP Pulse Ox 97.8 F 71 16 129/89 98 05/02/17 07:17 05/02/17 07:21 05/02/17 07:17 05/02/17 07:17 05/02/17 07:17 General appearance: Present: cooperative, A&O X 3, pleasant, no acute distress, answers questions appropriately - Head Head exam: Present: atraumatic, normal inspection, normocephalic Additional comments: 1.5 inch scar left maxiallary region - Eye Eye exam: Present: EOMI, normal appearance - ENT ENT exam: Present: mucous membranes moist, normal exam, normal oropharynx - Neck Neck exam general surgery: Present: full ROM, normal inspection, supple, trachea midline. Absent: tenderness - Respiratory Respiratory exam: Present: CTAB. Absent: rales, respiratory distress, rhonchi, wheezes, tachypnea - Cardiovascular Cardiovascular exam: Present: RRR, +S1, +S2. Absent: diastolic murmur, systolic murmur - GI/Abdominal GI/Abdominal exam: Present: normal bowel sounds, soft. Absent: distended, guarding, tenderness - Extremities Exam Extremities exam: Present: full ROM, normal capillary refill, normal inspection , pedal edema (minimal nonpitting bilateral lower extremity edema), warm, radial pulses palpable and symmetrical. Absent: tenderness - Neurological Exam Neurological exam: Present: alert, CN II-XII intact, normal gait, oriented X3, no focal deficits, strengths equal and symetr throughout. Absent: facial droop , speech deficit - Psychiatric Psychiatric exam: Present: normal affect, normal mood - Skin Skin exam: Present: dry, intact, normal color, warm. Absent: rash Internal Medicine: Result - Labs CBC & Chem 7: 05/02/17 03:43 05/02/17 09:27 Labs: Short CBC 05/02/17 Range/Units 03:43 WBC 5.5 (4.3-11.1) K/mcL Hgb 11.9 (11.5-15.4) g/dL Hct 33.7 L (35.3-44.9) % Plt Count 223 (140-400) K/mcL Neutrophils # 3.0 (1.6-8.9) K/mcL BMP 05/01/17 05/01/17 05/01/17 08:51 13:09 16:09 Sodium 129 L 130 L 130 L Potassium 4.1 Chloride 98 Carbon Dioxide 23 BUN 6 L Creatinine 0.68 Glucose 99 Calcium 9.4 05/01/17 05/02/17 05/02/17 21:47 03:43 03:43 Sodium 130 L 134 L 135 L Potassium 4.1 Chloride 102 Carbon Dioxide 24 BUN 10 Creatinine 0.76 Glucose 88 Calcium 9.6 - ABG Interpretation ABG results: PT/INR, D-dimer PT 10.8 Seconds (9.4-12.1) 04/30/17 17:42 Consult Discharge Plan - Plan Referrals: Amos Styles DO [Primary Care Provider] - <Lopez Bob - Last Filed: 05/02/17 13:04> Date of Encounter: 05/02/17 - Constitutional Vitals: Temp Pulse Resp BP Pulse Ox 97.4 F L 87 16 148/99 97 05/02/17 11:12 05/02/17 11:27 05/02/17 11:12 05/02/17 11:12 05/02/17 11:12 Internal Medicine: Result - Labs CBC & Chem 7: 05/02/17 03:43 05/02/17 09:27 Labs: Short CBC 05/02/17 Range/Units 03:43 WBC 5.5 (4.3-11.1) K/mcL Hgb 11.9 (11.5-15.4) g/dL Hct 33.7 L (35.3-44.9) % Plt Count 223 (140-400) K/mcL Neutrophils # 3.0 (1.6-8.9) K/mcL BMP 05/01/17 05/01/17 05/01/17 13:09 16:09 21:47 Sodium 130 L 130 L 130 L Potassium Chloride Carbon Dioxide BUN Creatinine Glucose Calcium 05/02/17 05/02/17 05/02/17 03:43 03:43 09:27 Sodium 134 L 135 L 136 Potassium 4.1 Chloride 102 Carbon Dioxide 24 BUN 10 Creatinine 0.76 Glucose 88 Calcium 9.6 - ABG Interpretation ABG results: PT/INR, D-dimer PT 10.8 Seconds (9.4-12.1) 04/30/17 17:42 - Attending Attestation I have independently seen and examined this patient on 05/02/17 and discussed plan of care with the patient and the resident 51 year old female with history of hypertension, hyperlipidemia, COPD,chronic intermittent lower extreity edema, severe anxiety, neuropathy, dystonia, and history of cervical cancer , tobacco abuse She is admitted and being managed for hypoosmolar hyponatremia, possibly secondary to SIADH due to psych meds This morning, she states she actually feels stronger She has chronic bronchitis from COPD, she is otherwise stable Physical exam: VSS, speaks full sentences. Chest is CTAB. HEENT: Moist mucosa. HS S1, S2, bradycardia. Abdomen is soft and not tender. Extremities -no edema Labs and Imaging reviewed: Hypo-osmolar hyponatremia-overcorrected by 9meq in 24 hrs. CXR unremarkable. ECHO with mild LVDD A/P; Symptomatic moderate-Severe hyponatremia. Possibly secodnary to SIADH from psych medications-overcorrected by 8meq in 24 hrs. D/C saline. GIve D5W for a few hrs, repeat Chem p.m Clair solano noted nephrology input appreciated Her ECHO is noted Anxiety -management as recommended by Psych, d/c Heide Rest of details as in resident physician's documentation
[2017-05-02] MEDS ORDERED: D5% in Water 1,000 ML IVC SCH (08:00)
--- NOTE | 2017-05-02 09:13 | Nephrology Progress Note ---
Date of Encounter: 05/02/17 Time of Encounter: 08:35 - Assessment and Plan (1) Hyponatremia Current Visit: Yes Status: Acute Hyponatremia; SIADH like syndrome R/T medication. Sodium normal range 135. IV fluds stopped. Urine osum 252. Uric acid 2.3, random cortisol 14.2. Recommend stopping/alternate medication to oxcarbazepine. Fluid restriction 1500cc daily. Subjective Interval history: Sitting on edge of bed, eating breakfast. States feels somewhat stronger. No new complaints. Objective - Vital Signs Vital signs: Vital Signs Temp Pulse Resp BP Pulse Ox 05/02/17 07:21 71 05/02/17 07:17 97.8 F 67 16 129/89 98 05/02/17 03:30 66 05/02/17 03:22 98.1 F 72 20 133/79 96 05/02/17 00:30 79 05/01/17 23:11 97.7 F 89 18 141/89 97 05/01/17 20:00 73 05/01/17 19:16 97.9 F 83 20 140/95 98 05/01/17 14:52 72 05/01/17 14:46 97.7 F 72 18 142/97 96 05/01/17 11:20 68 05/01/17 11:17 97.9 F 64 20 140/85 98 Intake and Output 05/01/17 05/02/17 05/02/17 23:59 07:59 15:59 Intake Total 960 / 960 903 / 903 Output Total 1150 / 1150 1800 / 1800 Balance -190 / -190 -1800 / -1800 903 / 903 Intake: IV Fluids 903 / 903 0.45% Sodium Chloride 903 / 903 1000 Ml 1000 Ml 1,000 ML @ 75 mls/hr IVC .[id number] [place] Rx#:[id number] Oral 960 / 960 Output: Urine 1150 / 1150 1800 / 1800 Other: Meal Dinner Percent of Meal Consumed 100% # Voids 2 Weight 82.1 kg Patient Weight 05/02/17 23:59 Weight 82.1 kg - General Appearance General appearance: Present: well-developed, well-nourished, appears started age EENT: Present: mucous membranes moist Neck: Present: no JVD Respiratory: Present: clear Cardiology: Present: no murmurs, edema, regular rate, regular rhythm Additional Comments: no pitting edema Gastrointestinal: Present: normoactive bowel sounds, no tenderness Integumentary: Present: warm and dry Neurologic: Present: alert and oriented x3 Psychiatric: Present: mood/affect appropriate, cooperative - Lab 05/02/17 03:43 05/02/17 03:43 Most recent lab results Calcium 9.6 mg/dL (8.6-10.8) 05/02/17 03:43 Magnesium 1.8 mg/dL (1.6-2.6) 04/30/17 17:42 Urine Creatinine 47 mg/dL 04/30/17 14:14 Urine Sodium 63.0 mEq/L 04/30/17 14:14 Consult Discharge Plan - Plan Referrals: Amos Styles DO [Primary Care Provider] -
[2017-05-02] MEDS: Benzonatate 100 MG CAPSULE PO PRN ×2 (09:19→21:36)
[2017-05-02] MEDS: D5% in Water 1,000 ML IVC SCH ×2 (16:57→21:37)
[2017-05-02] MEDS: Nicotine 2 MG GUM BC PRN (17:49)
[2017-05-02] MEDS: OLANZapine 10 MG TAB.RAPDIS PO SCH (19:51)
[2017-05-03] MEDS: Nicotine 2 MG GUM BC PRN (04:55)
[2017-05-03] MEDS: *HR* Enoxaparin 40 MG/0.4 ML SYRINGE SQ SCH (05:03)
[2017-05-03 05:34] LABS: BUN/Creatinine Ratio 15 (6-26); Blood Urea Nitrogen 11 mg/dL (7-20); Calcium 9.9 mg/dL (8.6-10.8); Carbon Dioxide 26 mEq/L (19-29); Chloride 106 mEq/L (98-109); Glucose 110 mg/dL (70-99); Osmolality,Calculated 292 (280-300); Potassium 3.8 mEq/L (3.5-4.5); Sodium 141 mEq/L (136-145); eGFR For African Americans > 60 (> 60); eGFR For Non-African Americans > 60 (> 60)
[2017-05-03] MEDS: Silver Sulfadiazine 50 GM TUBE TP SCH (07:47)
[2017-05-03] MEDS: diazePAM 10 MG TABLET PO SCH (07:47)
[2017-05-03] MEDS: Pregabalin 50 MG CAPSULE PO SCH (07:48)
[2017-05-03] MEDS: Fluticasone Propionate Nasal 50 MCG/SPRAY BOTTLE NS SCH (07:48)
[2017-05-03] MEDS: Nicotine 21 MG PATCH.TD24 TD SCH (07:49)
--- NOTE | 2017-05-03 08:44 | Event Note ---
Date of Encounter: 05/03/17 Time of Encounter: 08:44 The patient's sodium has improved. The Trileptal has been discontinued. Nephrology will sign off. Please call again if needed. She should remain off all medications that potentially could exacerbate hyponatremia.
[2017-05-03 09:04] VITALS: BP 126/107
--- NOTE | 2017-05-03 09:09 | Discharge Summary ---
<Amos Styles Zen - Last Filed: 05/03/17 10:56> Date of Encounter: 05/03/17 Time of Encounter: 09:09 - Discharge Diagnosis (1) Hyponatremia Priority: Primary Status: Acute (2) Bilateral lower extremity edema Priority: Primary Status: Acute (3) Dyspnea on exertion Priority: Secondary Status: Acute (4) Second degree burn of fingers Priority: Secondary Status: Acute Qualifiers: Encounter type: initial encounter Laterality: unspecified laterality Qualified Code(s): T23.229A - Burn of second degree of unspecified single finger (nail) except thumb, initial encounter (5) Severe anxiety Priority: Secondary Status: Chronic Comments: Trileptal discontinued on 05/01/17, will need to follow up with Psychiatrist within 7-14 days of discharge (6) Neuropathy Priority: Secondary Status: Chronic (7) HTN (hypertension) Priority: Secondary Status: Chronic Qualifiers: Hypertension type: essential hypertension Qualified Code(s): I10 - Essential (primary) hypertension (8) Tobacco abuse Priority: Secondary Status: Acute (9) History of cervical cancer Priority: Secondary Status: Acute - Discharge Medications Home Medications: Benztropine [Cogentin] 0.5 mg PO BID 04/13/17 [History] Fluticasone Propionate Nasal [Flonase] 2 spray NS DAILY 04/13/17 [History] Meloxicam 15 mg PO DAILY 04/13/17 [History] OLANZapine [Zyprexa] 20 mg PO HS 04/13/17 [History] Pantoprazole Sodium 40 mg PO DAILY 04/13/17 [History] Pregabalin [Lyrica] 50 mg PO TID 04/13/17 [History] diazePAM [Valium] 10 mg PO TID 04/13/17 [History] hydrOXYzine pamoate [HydrOXYzine Pamoate] 50 mg PO BID 04/13/17 [History] Silver Sulfadiazine [Silvadene] 1 appl TP BID 05/03/17 [Rx] Allergies/Adverse Reactions: 3 Allergy/AdvReac Type Severity Reaction Status Date / Time codeine Allergy Anaphylaxis Verified 04/30/17 14:37 Penicillins Allergy Hives Verified 04/30/17 14:37 Procedures/tests Complete & Pending: Procedures Performed prior 72 hours Category Date Time Status EKG [ECG 12 lead ECG] [ECG] Routine Y 04/30/17 16:44 Ordered EV echocardiogram Routine Y 04/30/17 15:31 Completed Date of admission: 04/30/17 15:13 Primary care physician: Amos Styles DO Consults: Gary Doyle Discharging clinician: Lopez Bob (Jensen) Anticipated date of discharge: 05/03/17 - Patient Status Disposition: Home, Self-Care Condition: Good Functional capacity at discharge: independent ambulation Overall status at discharge: patient is progressing back to baseline - Discharge Instructions Instructions: Hyponatremia (GEN) Follow Up With: Sam Lowe DO [Resident] - 05/07/17 10:20 am (Your appointment for Dr. Styles for 05-03-17 (TODAY) @ 1600 has been cancelled) - Diet and Activity Activity: increase activity as tolerated Diet: advance to your usual diet Interval History: Patient reports doing well this morning, she feels like she has more energy than before and reports that she can see her ankles now that the edema is gone. Patient denies fevers, chills, sweats, nausea, vomiting, headaches, confusion , dizziness, lightheadedness, changes in appetite, chest pain, shortness of breath, abdominal pain, changes in bowels or bladder, weakness, or loss of sensation. Hospital course: Ms. Tracy Grimaldo is a 51 year old female with history of hypertension, hyperlipidemia, chronic intermittent lower extremity edema, severe anxiety with labile mood, neuropathy, dystonia, seasonal allergies, and history of cervical cancer who presented to the ED on 04/30/17 with complaints of low sodium and leg swelling. Sodium was 125 on 04/19/17, 117 on 04/29/17, and 120 on arrival to ED. Patient reported associated lightheadedness, increased tiredness and fatigue, shortness of breath with exertion worsening over the past two months. Patient ate a bunch of salt just prior to admission overnight in attempts to correct sodium on own. Patient also has chronic lower extremity edema worse over the past months since starting Lyrica in December 2016. Patient reportedly went to Urgent Care for treatment due to seeping from legs, but no records were able to be located of recent visits. Patient also had second degree anderson of hands that occurred about two weeks prior to arrival. Also noted 15Lb weight gain since February 2017. Labs on arrival revealed Na 120, Potassium 4.6, Cl 90, Cr 0.67, Serum Osm 252, Uric acid 2.3, Alkaline phosphatase 176, BNP 87, Albumin 3.2, TSH 1.568, Urine osm 252, Urine Cr 47, and Urine Na 63. CXR revealed no acute cardiopulm process. Patient was admitted for severe hypoosmolar hyponatremia and lower extremity edema. Patient was started on normal saline IV fluids, fluid restriction diet, and sodium checks q6h. Nephrology was consulted. Patients sodium overcorrected from goal correction of 4-6mEq/24 hours to 129 in the morning 05/09. Patient did not have neurological status changes, but did urinate a lot and bilateral lower extremity edema resolved overnight. Random cortisol morning revealed 14.2 normal. Echo returned normal with normal LV systolic function, EF 60-65%, mild LV diastolic dysfunction, no valvular dysfunction, no evidence of pulmonary hypertension. Patient reported being on Trileptal for anxiety, denied seizure disorder. Psychiatry was consulted for medication recommendations as Trileptal was the most likely medication to cause hyponatremia/SIADH. Trileptal was discontinued and hydroxyzine tid was orderd. Due to continued sodium elevation to 130, overcorrected from goal correction in 24 hours, normal saline was started. Sodium level on 05/02/17 morning was 134, which was still overcorrected. Patient was started on D5W in attempts to reverse overcorrection, but Nephro recommended discontinuance of all IV fluids. Patient continued to have no changes in mental status and actually reported improvement in energy and alertness. Sodium returned 140 in the early evening so D5W was started again. Patients fluid restriction was also discontinued. Patient did well overnight without new complaints. Sodium was 140 and 141 in the morning. On exam the patient was more alert than admission and did not have noted neurological deficits or weakness and pedal edema is now resolved. Patient is to be discharged home to follow up with PCP within 3-5 days regarding this hospital stay. Repeat labs in 1 week and discontinued Oxcarbazepine. To follow up with Psychiatrist in 1-2 weeks. Time spent discussing smoking cessation with patient: 3 to 10 minutes - Time Spent with Patient Total time spent providing and/or coordinating discharge services: - Constitutional Vitals: Temp Pulse Resp BP Pulse Ox 97.6 F 83 20 126/107 100 05/03/17 07:35 05/03/17 07:40 05/03/17 07:35 05/03/17 07:35 05/03/17 07:35 General appearance: Present: cooperative, A&O X 3, pleasant, no acute distress, answers questions appropriately - Head Head exam: Present: atraumatic, normal inspection, normocephalic Additional comments: 1.5 inch scar left maxillary region - Eye Eye exam: Present: EOMI, normal appearance - ENT ENT exam: Present: mucous membranes moist, normal exam, normal oropharynx - Neck Neck exam general surgery: Present: full ROM, normal inspection, supple, trachea midline. Absent: tenderness - Respiratory Respiratory exam: Present: CTAB. Absent: rales, respiratory distress, rhonchi, wheezes, tachypnea - Cardiovascular Cardiovascular exam: Present: RRR, +S1, +S2. Absent: diastolic murmur, JVD, systolic murmur - GI/Abdominal GI/Abdominal exam: Present: normal bowel sounds, soft. Absent: distended, guarding, tenderness - Extremities Exam Extremities exam: Present: full ROM, normal capillary refill, normal inspection , warm, radial pulses palpable and symmetrical. Absent: pedal edema, tenderness Additional comments: onychomycosis noted - Neurological Exam Neurological exam: Present: alert, CN II-XII intact, normal gait, oriented X3, no focal deficits, strengths equal and symetr throughout. Absent: motor sensory deficit, facial droop, speech deficit - Psychiatric Psychiatric exam: Present: normal affect, normal mood - Skin Skin exam: Present: dry, intact, normal color, warm. Absent: rash <Lopez Bob T - Last Filed: 05/03/17 13:16> Date of Encounter: 05/03/17 Procedures/tests Complete & Pending: Procedures Performed prior 72 hours Category Date Time Status EKG [ECG 12 lead ECG] [ECG] Routine Y 04/30/17 16:44 Ordered EV echocardiogram Routine Y 04/30/17 15:31 Completed Date of admission: 04/30/17 15:13 Primary care physician: Amos Styles DO Hospital course: Ms. Grimaldo is a 51 year old female - Time Spent with Patient Total time spent providing and/or coordinating discharge services: - Constitutional Vitals: Temp Pulse Resp BP Pulse Ox 97.6 F 83 20 126/107 100 05/03/17 07:35 05/03/17 07:40 05/03/17 07:35 05/03/17 07:35 05/03/17 07:35 - Attending Attestation I have independently seen and examined this patient on 05/03/17 and discussed plan of care with the patient and the resident 51 year old female with history of hypertension, hyperlipidemia, COPD,chronic intermittent lower extremity edema, severe anxiety, neuropathy, dystonia, and history of cervical cancer , tobacco abuse She is admitted and being managed for hypoosmolar hyponatremia, possibly secondary to SIADH due to psych meds Physical exam: VSS, speaks full sentences. Chest is CTAB. HEENT: Moist mucosa. HS S1, S2, bradycardia. Abdomen is soft and not tender. Extremities -no edema Labs and Imaging reviewed: Na normal A/P; Symptomatic moderate-Severe hyponatremia. Resolved. Patient is neurologically stable. Discharge home to follow up with PCP Rest of details as in resident physician's documentation Tobacco cessation counselling done for 3 minutes
== END 2017-05-03 11:25 | disposition home or self-care (01) | DRG 424 ==
LOC: EMEROO 12:10 → SUATTDRO 15:13 → 2NNU 15:13
PROVIDERS: ADMIT Internal Medicine; ATTEND Internal Medicine